=== PATIENT | female | born 1975 | race African-American/Black ===

== ENCOUNTER 2018-08-31 21:31 | Emergency (ER) | payer OTHER, MEDICAID ==
[~2018-08-31] VITALS: Ht 170.2 cm; Wt 134.3 kg
[~2018-08-31 21:31] MED LIST: AMOXICILLIN 50500 M1 PO; AMOXICILLIN875 MG PO; AMOXIL 875 MG875 M1 PO; BACTRIM DS TAB1 EACH PO; CIPRO250 M1 PO; LORTAB 5 MG/5001 TA1 PO; MACROBID 100 M100 M1 PO; NOHOMEMEDICATIONS; NORCO 5-325 TA1 EACH PO; PENICILLIN VK250 MG PO; PHENERGAN 25 MG25 M1 PO; PROAIR HFA8.5 GM INH; PROMETHAZINE/C118 ML PO; PROTONIX40 M2 PO; PYRIDIUM200 MG PO; SPACERADULT INH; TRAMADOL 50 MG50 MG PO; TRIAMTERENE-HC1 EAC1
[2018-08-31] MEDS ORDERED: TESSALON PERLE100 MG PO (22:23)
[2018-08-31] MEDS ORDERED: PREDNISONE 10 M10 MG PO (22:23)
[2018-08-31] MEDS ORDERED: ZPAK PO (22:23)
[2018-08-31] MEDS ORDERED: ATROVENT HFA14 GM INH (22:23)
[2018-08-31 22:43] VITALS: BP 149/89
== END 2018-08-31 22:44 | disposition home or self-care (01) ==
LOC: M.ERS 21:31
DX: J40 Bronchitis, not specified as acute or chronic (principal); G43.909 Migraine, unspecified, not intractable, without status migrainosus

== ENCOUNTER 2019-02-05 18:06 | Emergency (ER) | payer OTHER, MEDICAID ==
[~2019-02-05] VITALS: Ht 170.2 cm; Wt 130.6 kg
[~2019-02-05 18:06] MED LIST changes: +ATROVENT HFA14 GM INH; +PREDNISONE 10 M10 MG PO; +TESSALON PERLE100 MG PO; +ZPAK PO
[2019-02-05 18:12] VITALS: BP 153/84
[2019-02-05] MEDS ORDERED: PREDNISONE 20 M20 MG PO (18:57)
[2019-02-05] MEDS ORDERED: DELSYM30 MG/5 M1 PO (18:57)
[2019-02-05] MEDS ORDERED: PROAIR HFA8.5 GM INH (18:57)
== END 2019-02-05 19:04 | disposition home or self-care (01) ==
LOC: M.ERS 18:06
DX: R05 Cough (principal); G43.909 Migraine, unspecified, not intractable, without status migrainosus; Z98.51 Tubal ligation status

== ENCOUNTER 2020-02-12 16:59 | Emergency (ER) | payer OTHER, MEDICAID ==
[~2020-02-12] VITALS: Ht 170.2 cm; Wt 136.1 kg
[~2020-02-12 16:59] MED LIST changes: +DELSYM30 MG/5 M1 PO; +PREDNISONE 20 M20 MG PO
[2020-02-12] MEDS ORDERED: AMOXIL 875 MG875 M1 PO (17:44)
[2020-02-12] MEDS ORDERED: LIDOCAINE VISC100 ML SWISH&SPIT (18:29)
[2020-02-12] MEDS ORDERED: APAP W/CODEINE1 TA2 PO (18:29)
[2020-02-12] MEDS ORDERED: IBUPROFEN 800800 M1 PO (18:29)
[2020-02-12 18:30] VITALS: BP 155/109
== END 2020-02-12 18:30 | disposition home or self-care (01) ==
LOC: M.ERS 16:59
DX: K08.89 Other specified disorders of teeth and supporting structures (principal); G43.909 Migraine, unspecified, not intractable, without status migrainosus; Z90.49 Acquired absence of other specified parts of digestive tract; Z98.51 Tubal ligation status

== ENCOUNTER 2020-02-19 08:23 | Emergency (ER) | payer OTHER, MEDICAID ==
[~2020-02-19] VITALS: Ht 170.2 cm; Wt 127.0 kg
[~2020-02-19 08:23] MED LIST changes: +APAP W/CODEINE1 TA2 PO; +IBUPROFEN 800800 M1 PO; +LIDOCAINE VISC100 ML SWISH&SPIT
[2020-02-19] MEDS ORDERED: HIGH BLOOD PRESSURE (08:37)
[2020-02-19 09:29] VITALS: BP 130/96
== END 2020-02-19 09:29 | disposition home or self-care (01) ==
LOC: M.ERS 08:23
DX: U07.1 COVID-19 (principal); G43.909 Migraine, unspecified, not intractable, without status migrainosus; Z90.49 Acquired absence of other specified parts of digestive tract; Z98.51 Tubal ligation status